=== PATIENT | female | born 1995 | race Caucasian/White ===

== ENCOUNTER 2016-11-09 11:26 | Emergency (ER) | payer MEDICAID, OTHER ==
[2016-11-09 12:24] VITALS: BP 116/66
--- NOTE | 2016-11-09 12:57 | UC ---
General HPI - HPI Summary HPI Summary: WOITH TWINS, LEFT MISSDLE FINGER HAS RING THAT BECAME STUCK WOULD LIKE TO HAVE RING REMOVED - History of Current Complaint Chief Complaint: UCGeneralIllness Stated Complaint: RING STUCK ON SWOLLEN FINGER, 8MOS PREG Time Seen by Provider: 11/09/16 12:39 Hx Obtained From: Patient Onset/Duration: Gradual Onset, Lasting Days, Still Present Onset Severity: Mild Current Severity: Mild Associated Signs & Symptoms: Positive: Other - RING STUCK ON LEFT MIDDLE FINGER - Allergy/Home Medications Allergies/Adverse Reactions: Allergies Allergy/AdvReac Type Severity Reaction Status Date / Time No Known Allergies Allergy Verified 11/09/16 12:20 PMH/Surg Hx/FS Hx/Imm Hx Previously Healthy: Yes - Surgical History Surgical History: None - Family History Known Family History: Negative: Blood Disorder - Social History Occupation: Employed Full-time Lives: With Family Alcohol Use: None Substance Use Type: None Smoking Status (MU): Never Smoked Tobacco Review of Systems Constitutional: Negative Skin: Other - RING STUCK ON LEFT THIRD FINGER Eyes: Negative ENT: Negative Respiratory: Negative Cardiovascular: Negative Gastrointestinal: Negative Genitourinary: Negative Motor: Negative Neurovascular: Negative Musculoskeletal: Negative Neurological: Negative Psychological: Negative All Other Systems Reviewed And Are Negative: Yes Physical Exam Triage Information Reviewed: Yes Appearance: Well-Appearing, No Pain Distress, Well-Nourished Vital Signs: Initial Vital Signs Temp 98.1 F 11/09/16 12:21 Pulse 68 11/09/16 12:21 Resp 18 11/09/16 12:21 BP 116/66 11/09/16 12:21 Pulse Ox 100 11/09/16 12:21 Vital Signs Reviewed: Yes Eye Exam: Normal ENT Exam: Normal ENT: Positive: Normal ENT inspection Dental Exam: Normal Neck exam: Normal Neck: Positive: Supple, Nontender Respiratory Exam: Normal Respiratory: Positive: Chest non-tender, Lungs clear, Normal breath sounds, No respiratory distress Cardiovascular Exam: Normal Cardiovascular: Positive: RRR, No Murmur, Pulses Normal Abdominal Exam: Normal Musculoskeletal Exam: Normal - THIRD FINGER Musculoskeletal: Positive: Strength Intact, ROM Intact, Edema @ Neurological Exam: Normal Psychological Exam: Normal Skin Exam: Normal Procedures - Procedure Summary Procedure Summary: RING REMOVED USING RING CUTTER BY RN Course/Dx - Differential Dx - Multi-Symptom Differential Diagnoses: Metabolic Abnormality Provider Diagnoses: RING REMOVAL LEFT THIRD FINGER Discharge - Discharge Plan Condition: Stable Disposition: HOME Patient Education Materials: Soft Tissue Foreign Body (ED) Referrals: Jan Chen PA [Primary Care Provider] -
== END 2016-11-09 13:04 | disposition home or self-care (01) ==
LOC: UCEAST 11:26
DX: O26.893 Other specified pregnancy related conditions, third trimester (principal); M79.89 Other specified soft tissue disorders; Z3A.00 Weeks of gestation of pregnancy not specified
CPT/HCPCS: 99212; G0463

== ENCOUNTER 2016-11-11 09:18 | Inpatient (IN) | payer MEDICAID, OTHER ==
[2016-11-11] MEDS ORDERED: ceFOXitin 2 GM IVPREMIX* 2 GM/50 ML BAG IVPB ONE (11:00)
[2016-11-11] MEDS ORDERED: Sodium Citrate/Citric Acid* 15 ML UDC PO ONE (11:00)
[2016-11-11] MEDS ORDERED: Morphine PF AMP (0.5MG/ML)* 5 MG/10 ML AMP ONE (11:16)
[2016-11-11 11:18] LABS: Hematocrit 44 % (35-47); Hemoglobin 14.8 g/dl (12.0-16.0); Mean Corpuscular HGB Conc 34 g/dl (31-36); Mean Corpuscular Hemoglobin 29 pg (27-31); Mean Corpuscular Volume 87 fL (80-97); Mean Platelet Volume 10 um3 (7.4-10.4); Red Blood Count 5.03 10^6/ul (4.0-5.4); Red Cell Distribution Width 13 % (10.5-15); White Blood Count 13.1 10^3/ul (3.5-10.8)
[2016-11-11] MEDS ORDERED: OXYTOCIN* 10 UNITS/ML 1 ML VIAL ONE (11:20)
[2016-11-11 11:30] LABS: Add Diff/Slide Review? Slide Review Added; Comments Flag Yes
[2016-11-11] MEDS ORDERED: Ibuprofen TAB* 600 MG PO PRN (12:37)
[2016-11-11] MEDS ORDERED: oxyCODONE/Acetamin 5/325 MG* TAB PO PRN ×3 (12:37→12:42)
[2016-11-11] MEDS ORDERED: Zolpidem TAB* 5 MG PO PRN (12:37)
[2016-11-11] MEDS ORDERED: Tetan/Diph/Pertus SYR(Tdap)* 0.5 ML SYR(BOOSTRIX) use SYR IM ONE (12:37)
[2016-11-11] MEDS ORDERED: Witch Hazel PAD* JAR TOPICAL PRN (12:37)
[2016-11-11] MEDS ORDERED: Glycerin ADULT SUPP PR PRN (12:37)
[2016-11-11] MEDS ORDERED: Dibucaine 1% 28.35 GM TUBE PR PRN (12:37)
[2016-11-11] MEDS ORDERED: Ondansetron INJ* 2 MG/ML VIAL IV PRN (12:42)
[2016-11-11] MEDS ORDERED: Nalbuphine* 20 MG/ML 1 ML VIAL IV PRN (12:42)
[2016-11-11] MEDS ORDERED: Naloxone* 0.4 MG/ML 1 ML VIAL IV PRN (12:42)
[2016-11-11] MEDS ORDERED: Ibuprofen TAB* 600 MG PO SCH (13:00)
[2016-11-11] MEDS: Ibuprofen TAB* 400 MG PO SCH ×2 (13:35→22:21)
[2016-11-11] MEDS: Docusate CAP* 100 MG PO SCH ×2 (16:23→22:20)
[2016-11-11] MEDS: Simethicone CHEW TAB* 80 MG PO SCH ×2 (17:29→22:21)
[2016-11-11] MEDS: Acetaminophen TAB* 325 MG PO PRN (17:29)
[2016-11-12] MEDS: Ibuprofen TAB* 400 MG PO SCH (04:25)
[2016-11-12] MEDS: Ibuprofen TAB* 600 MG PO PRN ×4 (04:29→23:29)
[2016-11-12 07:15] LABS: Hematocrit 36 % (35-47); Mean Corpuscular HGB Conc 34 g/dl (31-36); Mean Corpuscular Hemoglobin 29 pg (27-31); Mean Corpuscular Volume 87 fL (80-97); Mean Platelet Volume 10 um3 (7.4-10.4); Red Blood Count 4.08 10^6/ul (4.0-5.4); Red Cell Distribution Width 13 % (10.5-15); White Blood Count 13.7 10^3/ul (3.5-10.8)
[2016-11-12] MEDS: Simethicone CHEW TAB* 80 MG PO SCH ×4 (08:18→20:45)
[2016-11-12] MEDS: Docusate CAP* 100 MG PO SCH ×3 (08:18→20:45)
[2016-11-12] MEDS: Acetaminophen TAB* 325 MG PO PRN ×4 (08:18→21:35)
[2016-11-12] MEDS ORDERED: Ferrous Gluconate TAB* 324 MG TAB PO SCH (09:00)
--- NOTE | 2016-11-12 15:57 | OP ---
CC: Dr. Hickman, [facility] OPERATIVE REPORT: DATE OF OPERATION: 11/11/16 DATE OF : 89 SURGEON: Surya Hodges MD. PROPAGATOR: Dr. Joi Hickman. ANESTHESIA: Spinal. PRE-OP DIAGNOSIS: Twin intrauterine in the cephalic-breech presentation at 31-6/7 weeks e stimated gestational age with oligohydramnios, category II tracing, and a biophysical profile of 2/1 0. POST-OP DIAGNOSIS: Twin intrauterine in the cephalic-breech presentation at 31-6/7 weeks estimated gestational age with oligohydramnios, category II tracing, and a biophysical profile of 2/ 10. OPERATIVE PROCEDURE: Primary low transverse section. ESTIMATED BLOOD LOSS: 600 cc. SPECIMEN SENT TO PATHOLOGY: Cord blood, cord gases, and placenta. IV FLUIDS: She received 1600 cc of IV crystalloid fluid. URINE OUTPUT: Clear. FINDINGS ON DELIVERY: Delivery of twin A in cephalic presentation over clear amniotic fluid, weighi ng 3 pound 7 ounces with 's of 6 and 9. Baby B was delivered via breech extraction over meconi um-stained fluid. It weighed 3 pounds 9 ounces, 's were 5 and 8. Both twins were female. The uterus was within normal limits. Adnexa, bowel, and bladder were all normal. Normal ovaries and t ubes, and there were no complications. DESCRIPTION OF PROCEDURE: The patient was taken to the operating room where she was identified. Ynes martinez was placed on the operating table, where a spinal anesthetic was obtained without difficulty. She was then placed in the supine position with a leftward tilt, prepped and draped in a normal sterile fashion. A Pfannenstiel skin incision was made with a knife and carried through to the underlying layer of fascia. The fascia was then nicked in the midline and extended laterally with curved Emerson scissors. The fascia was then grasped superiorly and inferiorly with Kang clamps and dissected sh arply from the rectus muscle. The rectus muscle was then in the midline bluntly. The per itoneum was identified, grasped with pickups, entered sharply with Metzenbaum scissors. The periton eum was then extended superiorly and inferiorly bluntly. A bladder blade was then inserted over the bladder. A bladder flap was created using Metzenbaum scissors over which the bladder blade was the n reinserted. A low transverse uterine incision was made with a knife. It was extended laterally w ith bandage scissors. At this point, baby A was delivered in cephalic presentation. After baby A w as delivered, the cord was clamped and cut and the was handed off to the waiting layout operator . Baby B was noted to be a breech extraction over meconium-stained fluid. The baby was delivered. The cord was clamped and cut. The was then handed off to waiting layout operator. At this poi nt, cord blood and cord gases were obtained on both baby A and B before sending to pathology. The p lacenta was removed manually and sent to pathology. The uterus was then removed from the patient's abdomen and cleared of all clot and debris using moist laparotomy sponges. The uterine incision was then closed using 0 Polysorb suture in a running locked fashion with a second imbricating layer of 0 Polysorb suture with good hemostasis noted. At this point, the patient's abdomen was irrigated wi th normal saline. Irrigation fluid was suctioned. The uterus was then returned to the patient's ab domen. The gutters were then cleared of all clot and debris using moist laparotomy sponges. The ut erine incision again was noted to be hemostatic. All the instruments and sponges were removed from the patient's abdomen. The peritoneum was closed using 3-0 Polysorb suture in a running fashion. T he fascia was closed using an 0 Polysorb suture in a running fashion and the skin was closed with a 4-0 Monocryl stitch subcuticularly. The patient tolerated the procedure well. Sponge, lap, needle counts were correct x2. She was then transferred to the recovery room area in stable condition. [id number]/[facility] #: [id number]
[2016-11-13] MEDS: Ibuprofen TAB* 600 MG PO PRN ×3 (06:23→18:28)
--- NOTE | 2016-11-13 08:41 | PTEDU ---
Patient Name: ERLIN YOUNG ERLIN YOUNG selected video: Never Ever Shake a Baby to view on 11/13/2016 at 8:40:15 AM from [facility] [id number]
[2016-11-13] MEDS: Docusate CAP* 100 MG PO SCH ×3 (09:08→20:56)
[2016-11-13] MEDS: Simethicone CHEW TAB* 80 MG PO SCH ×4 (09:08→20:56)
[2016-11-13] MEDS: Acetaminophen TAB* 325 MG PO PRN ×2 (09:10→18:28)
[2016-11-14 07:41] VITALS: BP 131/58
[2016-11-14] MEDS: Acetaminophen TAB* 325 MG PO PRN (07:49)
[2016-11-14] MEDS: Ibuprofen TAB* 600 MG PO PRN (07:49)
[2016-11-14] MEDS: Docusate CAP* 100 MG PO SCH (10:00)
[2016-11-14] MEDS: Simethicone CHEW TAB* 80 MG PO SCH (10:00)
== END 2016-11-14 18:30 | DRG 540 ==
LOC: MCHOBOUT 09:18 → MCHOB 10:43
PROVIDERS: ADMIT Obstetrics & Gynecology; ATTEND Obstetrics & Gynecology
PROC: 10D00Z1 Extraction of Products of Conception, Low, Open Approach (ICD-10-PCS; 2016-11-11)
PROC: 4A1HXCZ Monitoring of Products of Conception, Cardiac Rate, External Approach (ICD-10-PCS; principal; 2016-11-11 11:28)
DX: O76 Abnormality in fetal heart rate and rhythm complicating labor and delivery (principal); O41.03X1 Oligohydramnios, third trimester, fetus 1; O30.043 Twin pregnancy, dichorionic/diamniotic, third trimester; O41.03X2 Oligohydramnios, third trimester, fetus 2; Z37.2 Twins, both liveborn; O69.2XX1 Labor and delivery complicated by other cord entanglement, with compression, fetus 1; Z3A.31 31 weeks gestation of pregnancy; O77.0 Labor and delivery complicated by meconium in amniotic fluid; O32.1XX2 Maternal care for breech presentation, fetus 2
CPT/HCPCS: 36415; 76815; 85025; 86850; 86900; 86901; 88307; 90715; A9270-GY; J0694; J2590

== ENCOUNTER 2018-08-05 16:51 | Emergency (ER) | payer BC, OTHER ==
[2018-08-05 17:38] LABS: ABS Eosinophils 0.1 10^3/ul (0-0.6); ABS Lymphocytes 1.6 10^3/ul (1.0-4.8); ABS Monocytes 0.4 10^3/ul (0-0.8); ABS Neutrophils 5.6 10^3/ul (1.5-7.7); Eosinophil % 1.4 %; Hematocrit 43 % (35-47); Hemoglobin 14.5 g/dL (12.0-16.0); Lymphocyte % 20.3 %; Mean Corpuscular HGB Conc 34 g/dL (31-36); Mean Corpuscular Hemoglobin 30 pg (27-31); Mean Corpuscular Volume 89 fL (80-97); Platelet Count 201 10^3/uL (150-450); Red Blood Count 4.78 10^6 /uL (3.70-4.87); Red Cell Distribution Width 13 % (10.5-15); White Blood Count 7.6 10^3/uL (3.5-10.8)
--- NOTE | 2018-08-05 19:27 | ED ---
- HPI Summary HPI Summary: Patient states she had positive home test in May 2018, [facility]. [facility]os[facility] on 06/16/18 to promote . At follow-up in 2 weeks ultrasound was positive for possible retained products of conception. Patient was told to just wait and products would likely be expelled. Patient presents today stating her menses is late, and she had a positive home test. She then went to Center today, had POS urine preg test, and was evaluated by ultrasound which was negative for IUP, but could not rule out ectopic. Pt was then sent to the ED to rule out ectopic. Patient denies pain, fever, N/V, vaginal bleeding, vaginal discharge, N/V/D, abdominal pain, change in urine, change in BM, cough, sore throat, CP, SOB. Medical history is IBS. Currently on OCP. - History of Current Complaint Chief Complaint: EDOBProblems Stated Complaint: OB PROBLEM PER PT Time Seen by Provider: 08/05/18 17:12 Hx Obtained From: Patient Onset/Duration: Started Hours Ago Current Severity: None Pain Intensity: 0 Location of Pain: None Character: None Associated Signs and Symptoms: Positive: Negative - Assessment Hx Now: - twins SAB: 1 IEA: 0 - Additional Pertinent History Maternal Blood Type and Rh: O Positive - Allergies/Home Medications Allergies/Adverse Reactions: Allergies Allergy/AdvReac Type Severity Reaction Status Date / Time No Known Allergies Allergy Verified 08/05/18 17:18 Home Medications: Home Medications Desogestrel-Ethinyl Estradiol [Isibloom 28 Day Tablet] 1 tab PO DAILY 08/05/18 [ History Confirmed 08/05/18] PMH/Surg Hx/FS Hx/Imm Hx Endocrine/Hematology History: Denies: Hx Anticoagulant Therapy Cardiovascular History: Denies: Hx Pacemaker/ICD History: Denies: Hx Dialysis Sensory History: Denies: Hx Eye Prosthesis Opthamlomology History: Denies: Hx Legally Blind EENT History: Denies: Hx Deafness Neurological History: Denies: Hx Dementia Infectious Disease History: No Infectious Disease History: Denies: Hx Clostridium Difficile, Hx Hepatitis, Hx Human Immunodeficiency Virus (HIV), Hx of Known/Suspected MRSA, Hx Shingles, Hx Tuberculosis, Hx Known/ Suspected VRE, Hx Known/Suspected VRSA, History Other Infectious Disease, Traveled Outside the [place] in Last 30 Days - Family History Known Family History: Negative: Blood Disorder - Social History Alcohol Use: None Substance Use Type: Reports: None Smoking Status (MU): Never Smoked Tobacco Review of Systems Constitutional: Negative Eyes: Negative ENT: Negative Cardiovascular: Negative Respiratory: Negative Gastrointestinal: Negative Genitourinary: Negative Musculoskeletal: Negative Skin: Negative Neurological: Negative Psychological: Normal All Other Systems Reviewed And Are Negative: Yes Physical Exam - Summary Physical Exam Summary: Abdomen soft nontender. No peripheral edema. Lung sounds clear to auscultation bilaterally. RRR. - Physical Exam Triage Information Reviewed: Yes Vital Signs Reviewed: Yes Appearance: Positive: Well-Appearing Skin: Positive: Warm Head/Face: Positive: Normal Head/Face Inspection Eyes: Positive: Normal Neck: Positive: Supple Respiratory/Lung Sounds: Positive: Clear to Auscultation Cardiovascular: Positive: Normal Abdomen Description: Positive: Nontender Musculoskeletal: Positive: Normal Neurological: Positive: Normal Psychiatric: Positive: Normal AVPU Assessment: Alert - Maninder Coma Scale Eye: 4 - Spontaneous Motor: 6 - Obeys Commands Verbal: 5 - Oriented Coma Scale Total: 15 Diagnostics - Vital Signs Vital Signs Temp Pulse Resp BP Pulse Ox 08/05/18 16:55 99.2 F 79 16 141/84 99 - Laboratory Lab Results: Lab Results 08/05/18 08/05/18 Range/Units 17:33 17:33 WBC 7.6 (3.5-10.8) 10^3/uL RBC 4.78 (3.70-4.87) 10^6 /uL Hgb 14.5 (12.0-16.0) g/dL Hct 43 (35-47) % MCV 89 (80-97) fL MCH 30 (27-31) pg MCHC 34 (31-36) g/dL RDW 13 (10.5-15) % Plt Count 201 (150-450) 10^3/uL MPV 9.0 (7.4-10.4) fL Neut % (Auto) 72.9 % Lymph % (Auto) 20.3 % [place] % (Auto) 4.9 % Eos % (Auto) 1.4 % Baso % (Auto) 0.5 % Absolute Neuts (auto) 5.6 (1.5-7.7) 10^3/ul Absolute Lymphs (auto) 1.6 (1.0-4.8) 10^3/ul Absolute Monos (auto) 0.4 (0-0.8) 10^3/ul Absolute Eos (auto) 0.1 (0-0.6) 10^3/ul Absolute Basos (auto) 0.0 (0-0.2) 10^3/ul Absolute Nucleated RBC 0.0 10^3/ul Nucleated RBC % 0.0 Beta HCG, Quant 25.78 mIU/mL Result Diagrams: 08/05/18 17:33 Lab Statement: Any lab studies that have been ordered have been reviewed, and results considered in the medical decision making process. Course/Dx - Course Course Of Treatment: Patient states she had positive home test in May 2018, [facility] on to promote . At follow-up in 2 weeks ultrasound was positive for possible retained products of conception. Patient was told to just wait and products would likely be expelled. Patient presents today stating her menses is late, and she had a positive home test. She then went to Center today, had POS urine preg test, and was evaluated by ultrasound which was negative for IUP, but could not rule out ectopic. Pt was then sent to the ED to rule out ectopic. Patient denies pain, fever, N/V, vaginal bleeding, vaginal discharge, N/V/D, abdominal pain, change in urine, change in BM, cough, sore throat, CP, SOB. Medical history is IBS. Currently on OCP. Physical exam :Abdomen soft nontender. No peripheral edema. Lung sounds clear to auscultation bilaterally. RRR. Vital signs within normal limits. Labs unremarkable. HCG 25. Ultrasound positive for retained products of conception. Ultrasound also indicates possible perforation by IUD. Patient does not have IUD. Radiology states, by phone, most likely artifact. Patient advised to follow up with [facility] for further management. Patient understands and approves of plan - Diagnoses Provider Diagnoses: Retained products of conception Discharge - Sign-Out/Discharge Documenting (check all that apply): Patient Departure Patient Received Moderate/Deep Sedation with Procedure: No - Discharge Plan Condition: Stable Disposition: HOME Patient Education Materials: Dilation and Curettage (DC) Referrals: Jan Chen PA [Primary Care Provider] - Additional Instructions: Follow-up with your [facility] for further evaluation of retained products of conception. Return to the ED for any new or worsening symptoms. - Billing Disposition and Condition Condition: STABLE Disposition: Home
[2018-08-05 19:43] VITALS: BP 135/79
== END 2018-08-05 19:42 | disposition home or self-care (01) ==
LOC: ED 16:51
DX: O03.4 Incomplete spontaneous abortion without complication (principal)
CPT/HCPCS: 36415; 76830; 84702; 85025; 99282

== ENCOUNTER 2019-05-11 11:36 | Emergency (ER) | payer BC ==
[2019-05-11] MEDS ORDERED: NS 0.9% 1000 ML** 1,000 ML IV ONE ×2 (12:40→12:42)
[2019-05-11] MEDS ORDERED: Ketorolac INJ* 30 MG/ML 1 ML VIAL IV PUSH ONE (12:40)
[2019-05-11] MEDS ORDERED: Ondansetron INJ* 2 MG/ML VIAL IV ONE (12:40)
--- NOTE | 2019-05-11 12:50 | ED ---
Nausea/Vomiting/Diarrhea HPI - HPI Summary HPI Summary: Patient is a 24-year-old female who presents emergency department for vomiting, diarrhea and abdominal cramping that started yesterday. Patient notes family members sick with similar symptoms. The past medical history. Patient states she has vomited about 20 times today and cannot keep any fluids down. Symptoms are moderate in severity. No current modifying factors. - History of Current Complaint Chief Complaint: EDNauseaVomitDiarrh Stated Complaint: FLU SYMPTOMS PER PT Time Seen by Provider: 05/11/19 12:28 Hx Obtained From: Patient Pain Intensity: 8 - Allergies/Home Medications Allergies/Adverse Reactions: Allergies Allergy/AdvReac Type Severity Reaction Status Date / Time No Known Allergies Allergy Verified 05/11/19 11:40 PMH/Surg Hx/FS Hx/Imm Hx Previously Healthy: Yes Endocrine/Hematology History: Denies: Hx Anticoagulant Therapy Cardiovascular History: Denies: Hx Pacemaker/ICD History: Denies: Hx Dialysis Sensory History: Denies: Hx Eye Prosthesis, Hx Legally Blind, Hx Deafness Opthamlomology History: Denies: Hx Eye Prosthesis, Hx Legally Blind Neurological History: Denies: Hx Dementia Infectious Disease History: No Infectious Disease History: Denies: Hx Clostridium Difficile, Hx Hepatitis, Hx Human Immunodeficiency Virus (HIV), Hx of Known/Suspected MRSA, Hx Shingles, Hx Tuberculosis, Hx Known/ Suspected VRE, Hx Known/Suspected VRSA, History Other Infectious Disease, Traveled Outside the [place] in Last 30 Days - Family History Known Family History: Positive: Non-Contributory Negative: Blood Disorder - Social History Occupation: Employed Full-time Lives: With Family Alcohol Use: None Substance Use Type: Reports: None Smoking Status (MU): Never Smoked Tobacco Review of Systems - ROS Summary Review of Systems Summary: Desogestrel-Ethinyl Estradiol [Isibloom 28 Day Tablet] 1 tab PO DAILY 08/05/18 [ History Confirmed 08/05/18] Constitutional: Negative Negative: Fever ENT: Negative Respiratory: Negative Negative: Cough Positive: Abdominal Pain, Vomiting, Diarrhea, Nausea Genitourinary: Negative All Other Systems Reviewed And Are Negative: Yes Physical Exam Triage Information Reviewed: Yes Vital Signs On Initial Exam: Initial Vitals Temp Pulse Resp BP Pulse Ox 98.7 F 87 19 122/75 97 05/11/19 11:38 05/11/19 11:38 05/11/19 11:38 05/11/19 11:38 05/11/19 11:38 Vital Signs Reviewed: Yes Appearance: Positive: Well-Appearing - Pt. lying in bed in NAD. Appears uncomfortable but nontoxic. Skin: Positive: Warm, Dry Head/Face: Positive: Normal Head/Face Inspection Eyes: Positive: Normal, EOMI Neck: Positive: Supple Respiratory/Lung Sounds: Positive: Clear to Auscultation, Breath Sounds Present Cardiovascular: Positive: Normal, RRR Abdomen Description: Positive: Nontender, Soft Neurological: Positive: Normal, CN Intact II-III Psychiatric: Positive: Affect/Mood Appropriate Procedures - Sedation Patient Received Moderate/Deep Sedation with Procedure: No Diagnostics - Vital Signs Vital Signs Temp Pulse Resp BP Pulse Ox 05/11/19 11:38 98.7 F 87 19 122/75 97 - Laboratory Result Diagrams: 05/11/19 12:58 05/11/19 12:58 Lab Statement: Any lab studies that have been ordered have been reviewed, and results considered in the medical decision making process. Naus/Vom/Diarrhea Course/Dx - Course Course Of Treatment: Patient with vomiting, diarrhea and abdominal pain. Sick contacts. Unable to tolerate by mouth fluids today. Patient was given IV fluids, Zofran and Toradol. Labs unremarkable. On reexamination patient is tolerating by mouth fluids without vomiting. Patient requesting influenza swab which was negative. Zofran prescribed. Follow-up with PCP if symptoms persist return to the ER symptoms change or worsen. - Differential Dx/Diagnosis Differential Diagnoses - Female: Appendicitis, Pancreatitis, Gastroenteritis ( Viral), Gastroenteritis (Bacterial), Colitis Provider Diagnosis: Gastroenteritis Condition At Discharge: Improved Discharge ED - Sign-Out/Discharge Documenting (check all that apply): Patient Departure - Discharge Plan Condition: Improved Disposition: HOME Prescriptions: Ondansetron TAB* [Zofran 4 MG Tab*] 4 mg PO Q6H PRN #12 tab PRN Reason: Nausea Patient Education Materials: Gastroenteritis (ED) Referrals: Jan Chen PA [Primary Care Provider] - Additional Instructions: Follow up with PCP if symptoms persist Zofran for vomiting Increase fluids Return to ER for uncontrollable vomiting, fever, increased abdominal pain or if concerned - Billing Disposition and Condition Condition: IMPROVED Disposition: Home
[2019-05-11 13:11] LABS: ABS Lymphocytes 0.2 10^3/ul (1.0-4.8); ABS Monocytes 0.4 10^3/ul (0-0.8); ABS Neutrophils 9.8 10^3/ul (1.5-7.7); Hematocrit 47 % (35-47); Hemoglobin 16.1 g/dL (12.0-16.0); Lymphocyte % 1.7 %; Mean Corpuscular HGB Conc 34 g/dL (31-36); Mean Corpuscular Hemoglobin 31 pg (27-31); Mean Corpuscular Volume 89 fL (80-97); Mean Platelet Volume 9.2 fL (7.4-10.4); Nucleated Red Blood Cells % 0.1; Platelet Count 202 10^3/uL (150-450); Red Blood Count 5.26 10^6 /uL (3.70-4.87); Red Cell Distribution Width 13 % (10-15); White Blood Count 10.3 10^3/uL (3.5-10.8)
[2019-05-11 13:24] LABS: Albumin 5.1 g/dL (3.2-5.2); Calcium 9.9 mg/dL (8.6-10.3); Potassium 3.9 mmol/L (3.5-5.0); Total Bilirubin 0.9 mg/dL (0.2-1.0)
[2019-05-11 13:30] LABS: Albumin/Globulin Ratio 1.9 (1-3); BUN/Creatinine Ratio 19.5 (8-20); C Reactive Protein 23.89 mg/L (<8.01); EGFR African American 102.8 (>60); EGFR Non-African American 84.9 (>60); Globulin 2.7 g/dL (2-4); Total Protein 7.8 g/dL (6.4-8.9)
[2019-05-11 15:16] LABS: Influenza A Molecular Negative (Negative); Influenza B Molecular Negative (Negative)
[2019-05-11 15:31] VITALS: BP 105/56
== END 2019-05-11 15:30 | disposition home or self-care (01) ==
LOC: ED 11:36
DX: K52.9 Noninfective gastroenteritis and colitis, unspecified (principal)
CPT/HCPCS: 36415; 80053; 83690; 85025; 86140; 96361; 96374; 96375; 99283; J1885; J2405

== ENCOUNTER 2021-11-22 05:55 | Inpatient (IN) ==
[2021-11-22] MEDS ORDERED: ceFOXitin 2 GM PREMIX 50 ML IVPB ONE (06:15)
[2021-11-22 06:33] LABS: ABS Eosinophils 0.1 10^3/ul (0-0.6); ABS Lymphocytes 1.7 10^3/ul (1.0-4.8); ABS Monocytes 0.7 10^3/ul (0-0.8); Hematocrit 37 % (35-47); Hemoglobin 12.2 g/dL (12.0-16.0); Lymphocyte % 17.7 %; Mean Corpuscular HGB Conc 33 g/dL (31-36); Mean Corpuscular Hemoglobin 28 pg (27-31); Mean Corpuscular Volume 85 fL (80-97); Mean Platelet Volume 9.1 fL (7.4-10.4); Nucleated Red Blood Cells % 0.1; Platelet Count 196 10^3/uL (150-450); Red Blood Count 4.38 10^6 /uL (3.70-4.87); Red Cell Distribution Width 15 % (10-15); White Blood Count 9.5 10^3/uL (3.5-10.8)
[2021-11-22 07:20] LABS: Urine Benzodiazepine Screen None Detected (None Detect); Urine Cannabinoids Screen None Detected (None Detect); Urine Opiates Screen None Detected (None Detect)
[2021-11-22] MEDS ORDERED: Naloxone 0.4 mg VIAL 0.4 mg/ml 1 ml VIAL IV PRN (07:22)
[2021-11-22] MEDS ORDERED: Sodium Citrate/Citric Acid LIQ 15 ML UDC PO ONE (07:22)
[2021-11-22] MEDS ORDERED: Buffered Lidocaine 1% SYRIN 1 ml INTRADERM ONE ×2 (07:22→07:41)
[2021-11-22] MEDS ORDERED: Morphine PF AMP (0.5MG/ML) 5 MG/10 ML AMP ONE (07:32)
[2021-11-22] MEDS ORDERED: Lactated Ringers 1000 ml BAG 1,000 ML IV ONE (07:41)
[2021-11-22] MEDS ORDERED: Lactated Ringers 1000 ml BAG 1,000 ML IV SCH ×3 (08:00→10:00)
[2021-11-22] MEDS ORDERED: Phenylephrine 40 mcg/mL 10mL (400mcg) SYRINGE ONE (08:24)
[2021-11-22] MEDS ORDERED: Oxytocin 10 UNITS/ML 1 ML VIAL ONE (08:24)
[2021-11-22] MEDS ORDERED: Dexamethasone IV 4 MG/ML VIAL 1 ml VIAL ONE (08:24)
[2021-11-22] MEDS ORDERED: Ondansetron 4 mg VIAL 2 MG/ML 2 ml VIAL ONE ×2 (08:24→12:05)
[2021-11-22 08:55] LABS: Urine Appearance Clear; Urine Bilirubin Negative (Negative); Urine Color Straw; Urine Glucose Negative (Negative); Urine Ketones Negative (Negative); Urine Nitrite Negative (Negative); Urine Protein Negative (Negative); Urine Specific Gravity 1.015 (1.005-1.030); Urine Urobilinogen 0.2 (Negative) (Negative)
[2021-11-22 09:00] LABS: Urine Bacteria 1+ (Absent); Urine Red Blood Cell Trace(0-2/hpf) (Absent); Urine Squamous Epithelial Cell Present (Absent); Urine White Blood Cell Trace(0-5/hpf) (Absent)
[2021-11-22 09:02] LABS: Urine Benzodiazepine Screen None Detected (None Detect); Urine Cannabinoids Screen None Detected (None Detect); Urine Opiates Screen None Detected (None Detect)
[2021-11-22] MEDS ORDERED: Witch Hazel PAD JAR TOPICAL PRN (09:19)
[2021-11-22] MEDS ORDERED: Dibucaine 1% OINT 28.35 GM TUBE PR PRN (09:19)
[2021-11-22] MEDS ORDERED: Glycerin ADULT 2.4 gm SUPP PR PRN (09:19)
[2021-11-22] MEDS ORDERED: Oxytocin in LR 20,000 MILLI.UNIT/1,000 ML BAG IV SCH (09:30)
[2021-11-22] MEDS: Oxytocin in LR 20,000 MILLI.UNIT/1,000 ML BAG IV SCH ×2 (12:25→20:35)
[2021-11-22] MEDS ORDERED: Metoclopramide 5 MG/ML VIAL (10 mg) IV PRN (15:07)
[2021-11-22] MEDS ORDERED: Ondansetron 4 mg VIAL 2 MG/ML 2 ml VIAL IV PRN (15:07)
[2021-11-22 15:30] LABS: Hematocrit 39 % (35-47); Hemoglobin 12.7 g/dL (12.0-16.0); Mean Corpuscular HGB Conc 33 g/dL (31-36); Mean Corpuscular Hemoglobin 27 pg (27-31); Mean Corpuscular Volume 83 fL (80-97); Mean Platelet Volume 9.3 fL (7.4-10.4); Platelet Count 186 10^3/uL (150-450); Red Blood Count 4.68 10^6 /uL (3.70-4.87); Red Cell Distribution Width 14 % (10-15); White Blood Count 24.2 10^3/uL (3.5-10.8)
[2021-11-22 16:15] LABS: Albumin 3.4 g/dL (3.2-5.2); Albumin/Globulin Ratio 1.4 (1-3); Calcium 9.5 mg/dL (8.6-10.3); Globulin 2.4 g/dL (2-4); Total Bilirubin 0.5 mg/dL (0.2-1.0); Total Protein 5.8 g/dL (6.4-8.9); eGFR CKD-EPI 135.1 (>60)
[2021-11-22 16:18] LABS: Potassium 5.1 mmol/L (3.5-5.0)
[2021-11-22 17:22] LABS: ABS Lymphocytes 0.5 10^3/ul (1.0-4.8); ABS Monocytes 0.7 10^3/ul (0-0.8); Eosinophil % 0.1 %; Lymphocyte % 2.1 %
[2021-11-23 06:27] LABS: ABS Eosinophils 0.1 10^3/ul (0-0.6); ABS Lymphocytes 1.5 10^3/ul (1.0-4.8); Eosinophil % 0.7 %; Hematocrit 32 % (35-47); Hemoglobin 10.4 g/dL (12.0-16.0); Lymphocyte % 10.7 %; Mean Corpuscular HGB Conc 33 g/dL (31-36); Mean Corpuscular Hemoglobin 27 pg (27-31); Mean Corpuscular Volume 82 fL (80-97); Mean Platelet Volume 8.7 fL (7.4-10.4); Platelet Count 183 10^3/uL (150-450); Red Blood Count 3.89 10^6 /uL (3.70-4.87); Red Cell Distribution Width 14 % (10-15); White Blood Count 13.6 10^3/uL (3.5-10.8)
[2021-11-25 09:14] VITALS: BP 120/63
== END 2021-11-25 12:30 | disposition home or self-care (01) | DRG 788 ==
LOC: MCHOB 05:55
PROVIDERS: ADMIT Obstetrics & Gynecology; ATTEND Obstetrics & Gynecology